=== PATIENT | male | born 2000 | race Caucasian/White ===

== ENCOUNTER 2018-12-21 08:46 | Emergency (ER) | payer OTHER ==
[2018-12-21 08:51] VITALS: BP 128/83
--- NOTE | 2018-12-21 09:06 | EDPHY ---
H & P Stated Complaint: cough/st/sinus issues Time Seen by Provider: 12/21/18 08:55 HPI/ROS: CHIEF COMPLAINT: Cough sore throat rhinorrhea x3 days HISTORY OF PRESENT ILLNESS: 18-year-old immunocompetent male with no seasonal influenza vaccination, daily tobacco use, complaining 3 days of intermittently productive cough, sore throat, rhinorrhea. No fever no chills. No myalgias. No abdominal pain. No headache. No nuchal rigidity. No otalgia. No dyspnea. No chest pain. PRIMARY CARE PROVIDER: REVIEW OF SYSTEMS: 10 systems reviewed and negative with the exception of the elements mentioned in the history of present illness PAST MEDICAL & SURGICAL HISTORY: no seasonal influenza vaccination SOCIAL HISTORY:Daily tobacco abuse PHYSICAL EXAM (Prior to examination, patient consented to physical exam, hands were washed and my usual and customary physical exam procedures followed) 1) GENERAL: Well-developed, well-nourished, alert and oriented. Appears to be in no acute distress. 2) HEAD: Normocephalic, atraumatic 3) HEENT: Pupils equal, round, reactive to light bilaterally. Sclera anicteric. Nasopharynx: Coryza. Oropharynx: Posterior oropharynx is erythematous with symmetrical enlargement of the bilateral tonsils with no exudate. No trismus no drooling. No pointing of the uvula. No hot potato voice.Moist Mucous membranes. Ears bilaterally with normal tympanic membranes. No signs of otitis media or otitis externa 4) NECK: Full range of motion, no meningeal signs. 5) LUNGS: Clear auscultation bilaterally, no wheezes, no rhonchi, no retractions. 6) HEART: Regular rate and rhythm, no murmur, no heave, no gallop. 7) ABDOMEN: No guarding, no rebound, no focal tenderness, negative McBurney's, negative Levy's, negative Rovsing's, negative peritoneal sign, 8) MUSCULOSKELETAL: Moving all extremities, no focal areas of tenderness, no obvious trauma. No peripheral edema or discoloration. 9) BACK: No CVA tenderness, no midline vertebral tenderness, no fluctuance, no step-off, no obvious trauma, no visual or palpable abnormality. 10) SKIN: No rash, no petechiae. 11) Psychiatric: Patient is oriented X 3, there is no agitation. DIFFERENTIAL DIAGNOSIS: In no particular order, my differential diagnosis includes, but is not limited to, meningitis, pneumonia, bronchitis, strep pharyngitis, viral pharyngitis, peritonsillar abscess, retropharyngeal abscess or plegmon, mononucleosis, meningitis, Lemierre syndrome. - Personal History Current Tetanus Diphtheria and Acellular Pertussis (TDAP): Yes - Medical/Surgical History Hx Asthma: No Hx Chronic Respiratory Disease: No Hx Diabetes: No Hx Cardiac Disease: No Hx Renal Disease: No Hx Cirrhosis: No Hx Alcoholism: No Hx HIV/AIDS: No Hx Splenectomy or Spleen Trauma: No Other PMH: pmh- chronic sinusitis/allergic fungal sinusitis. psh- x6 nose surgeries - Social History Smoking Status: Never smoked Constitutional: Initial Vital Signs Temperature (C) 37 C 12/21/18 08:49 Heart Rate 95 12/21/18 08:49 Respiratory Rate 17 12/21/18 08:49 Blood Pressure 128/83 H 12/21/18 08:49 O2 Sat (%) 97 12/21/18 08:49 O2 Delivery Mode Room Air Allergies/Adverse Reactions: No Known Allergies Allergy (Verified 12/21/18 08:47) Home Medications: Medication Instructions Recorded Albuterol [Proventil Inhaler HFA 1 - 2 puffs IH Q4PRN PRN #1 mdi 12/21/18 (*)] Benzonatate [Tessalon Pearles (RX)] 200 mg PO TID PRN #15 cap 12/21/18 Ipratropium 0.06% Nasal [Atrovent 2 sprays EACHNARE QID #1 mdi 12/21/18 0.06% Nasal (RX)] Pulmicort 12/21/18 Xyzal 12/21/18 Medical Decision Making ED Course/Re-evaluation: Patient's symptoms are more than likely secondary to viral etiology. Strep testing performed which is negative. For these reasons, I do not feel antibiotics are currently indicated. In addition, I do not identify indication for chest x-ray as the patient's lungs are clear bilaterally, has a normal pulse ox, speaking full sentences, no signs of respiratory distress. Will hold on influenza testing as he is outside the treatment window. The patient understands that this diagnosis is provisional and can never be 100% accurate. Usual and customary warnings were given concerning the clinical impression and all the patient's questions were answered. The patient was instructed to return to the emergency department should her symptoms worsen or return, or develop any new symptoms, otherwise to followup as directed in discharge instructions. Care of patient under supervision of primary Supervising physician Dr Laguna - Data Points Laboratory Results: 12/21/18 12/21/18 Unknown 09:00 Group A Strep Screen NEGATIVE (NEGATIVE) Group A Strep DNA Pending Departure - Departure Disposition: Home, Routine, Self-Care Clinical Impression: Upper respiratory infection Qualifiers: URI type: unspecified URI Qualified Code(s): J06.9 - Acute upper respiratory infection, unspecified Condition: Good Instructions: Upper Respiratory Infection (ED) Additional Instructions: You were examined in the emergency department today for upper respiratory infection (URI) like symptoms. While more URIs are caused by viral illnesses, we cannot always exclude the possibility of a bacterial infection that may require treatment with antibiotics. Return to the emergency department immediately for change in breathing habits, change in voice, change in swallowing habits, change in mental status, or any other symptoms that concern you. Adult Pain & Fever Control: We recommend Acetaminophen (Tylenol) and Ibuprofen (Motrin,Advil) for pain and fever control. When fever is high or pain severe, both drugs can be used at the same time, but at different intervals. Please note the time differences. Your dose is: Acetaminophen [650]mg every 4 to 6 hours Ibuprofen 600mg every 6 hours with food OR Note: do not take Acetaminophen with Hydrocodone (Vicodin, Lortab) or Oycodone (Percocet). These medications also contain Acetaminophen. No more than 3000mg of Acetaminophen should be taken in 24 hours (for an adult). Referrals: Niels Lim MD [Medical Doctor] - 2-3 days, call for appt. Stand Alone Forms: School Excuse Prescriptions: Albuterol [Proventil Inhaler HFA (*)] 1 - 2 puffs IH Q4PRN PRN #1 mdi PRN Reason: Cough, Moderate Benzonatate [Tessalon Pearles (RX)] 200 mg PO TID PRN #15 cap PRN Reason: Cough, Moderate Ipratropium 0.06% Nasal [Atrovent 0.06% Nasal (RX)] 2 sprays EACHNARE QID #1 mdi
== END 2018-12-21 09:30 | disposition home or self-care (01) ==
DX: J06.9 Acute upper respiratory infection, unspecified (principal); R05 Cough; F17.210 Nicotine dependence, cigarettes, uncomplicated; J32.9 Chronic sinusitis, unspecified